=== PATIENT | male | born 1940 | race Asian ===

== ENCOUNTER 2023-07-17 14:40 | Inpatient (IN) | payer OTHER, SELFPAY ==
[2023-07-17] VITALS (13 sets, daily range): BP systolic 92–115; BP diastolic 54–90; BMI 27.5
--- NOTE | 2023-07-17 12:45 | ED.GENMED ---
History of Present Illness
General
Chief Complaint: Dizziness
Source: patient and family
Exam Limitations: none
Time Seen by Provider: 07/17/23 12:26
Nursing documentation reviewed up to this point in time: agreed with
Travel History
Have you had any contact with someone who has COVID-19?: No
Do you have any symptoms of coronavirus? Fever > 100 degrees, chills, cough, shortness of breath, sore throat, loss of taste or smell, muscle aches, or headache?: No
History of Present Illness
History of Present Illness:
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
Nondrinker non-smoker, hypercholesterolemia does have hypertension
Past History
Past History
ED Past Medical History: HTN and Hypercholesterolemia
Social History
Tobacco: Non-smoker
Alcohol: None
Drug: None
Personal:
Living: with family
Employment: Retired
Review of Systems
Review of Systems
Constitutional: Reports fever and fatigue
Respiratory: Reports cough and trouble breathing
Cardiac: Reports no symptoms
ABD/GI: Reports no symptoms
: Reports dysuria, frequency and difficulty voiding
Skin: Reports no symptoms
Neurological: Reports weakness
Hematologic/Lymphatic: Reports no symptoms
Psychiatric: Reports no symptoms
Phy Exam
Physical Exam
Physical Exam:
Physical Exam
General: 83 male feels warm low blood pressure
Neck: Dry lips
Heart: Irregular
Lungs: Rhonchi left greater than
Abdomen: Soft not
Neuro: alert and oriented. no focal neurological deficits
Skin: no rash
Psychiatric:cooperative
Extremities: no edema.
Course
Orders/Labs/Results
Orders:
Orders
07/17/23 11:24
EKG [Electrocardiogram (*1)] Urgent
Reason for Study: Vertigo / Dizzy
EKG- Treatment ONCE
07/17/23 12:38
Cardiac Monitoring- Treatment ONCE
IV Insert/Care/Rem.- Treatment PRN
Urinalysis Reflex To Culture Urgent
Date Specimen was Collected: 07/17/23
Time Specimen was Collected: 12:52
07/17/23 12:39
Rectal Temp- Treatment ONCE
CR Chest - 2 Views Urgent
Comment:
Reason For Exam: weakness
07/17/23 12:40
Bladder Scan- Treatment ONCE
0.9% Sodium Chloride 1000 ml [Nss] 1,000 ml IV BOLUS
07/17/23 12:55
Complete Blood Count/With Diff Urgent
Comprehensive Metabolic Panel Urgent
Lactic Acid Q4H
Comment: CANCEL 2nd LACTIC ACID IF 1st LACTIC ACID IS LESS THAN 2
Troponin I Urgent
Blood Culture Q30M
NIKKO Source: Blood/Venous
Specimen Description:
Influenza A+B Rapid Molecular Urgent
NIKKO Source: Nasal Swab
Specimen Description:
07/17/23 12:59
Blood Culture Q30M
NIKKO Source: Blood/Venous
Specimen Description:
07/17/23 13:09
Acetaminophen [Tylenol] 650 mg PO NOW STA
07/17/23 14:04
CT Abd/pel Without Iv Or Oral Urgent
Comment:
Reason For Exam: pain ARF fever
07/17/23 14:05
CefTRIAXone [Rocephin] 1,000 mg IV NOW STA
07/17/23 14:09
Straight cath- Treatment ONCE
Ipratropium/Albuterol Sulfate [Duoneb] 3 ml INH R NOW STA
07/17/23 16:45
Lactic Acid Q4H
Comment: CANCEL 2nd LACTIC ACID IF 1st LACTIC ACID IS LESS THAN 2
Abnormal Lab Results
07/17/23
12:55
RBC 3.70 L 10^6/uL
(4.70-6.10)
Hgb 12.0 L g/dL
(13.0-18.0)
Hct 32.0 L %
(39.0-52.0)
MCH 32.4 H pg
(27.0-31.0)
MCHC 37.5 H g/dL
(33.0-37.0)
Absolute Lymphs (auto) 0.8 L 10^3/uL
(1.2-3.4)
Neutrophils % 80.0 H %
(42.2-75.2)
Lymphocytes % 11.4 L %
(20.5-51.1)
Sodium 126 L mmol/L
(135-145)
Carbon Dioxide 19 L mmol/L
(22-30)
BUN 49 H mg/dl
(9-20)
Creatinine 1.4 H mg/dL
(0.7-1.3)
Glucose 136 H mg/dl
(70-99)
Alkaline Phosphatase 37 L U/L
(38-126)
07/17/23 12:55
07/17/23 12:55
Vital Signs
Initial and Last Documented VS:
Initial Vital Signs
Temp Pulse Resp BP Pulse Ox
97.7 F 64 18 92/54 96
07/17/23 11:21 07/17/23 11:21 07/17/23 11:21 07/17/23 11:21 07/17/23 11:21
Last Documented Vital Signs
Temp Pulse Resp BP Pulse Ox
101.7 F H 65 17 105/90 96
07/17/23 13:06 07/17/23 14:00 07/17/23 14:00 07/17/23 14:00 07/17/23 14:00
MDM/Problems Addressed
Differential Diagnosis Includes:
Pneumonia sepsis UTI dehydration influenza A-fib electrolyte abnormality
MDM/Problems Addressed:
Cough fatigue and low blood pressure
Chronic conditions affecting care: HTN
Acute Exacerbation and/or Progression of Chronic Illness: HTN
*Radiology
Radiology exam reviewed: radiology read reviewed
*Pulse Oximetry
Patient hypoxic: no
*EKG
Interpreted by ED Provider?: Yes
Interpretation: abnormal
Comparison EKG: no comparison EKG present
Heart Rate: 78
Rate: normal
Rhythm: a-fib
Ischemia: non-specific ST changes
*Mule Driver Interpretation
Rate: normal
Interpretation: normal
Heart Rate: 78
Rhythm: sinus
*Critical Care Note
Total Time (30-74mins, 75-104mins- exclusive of procedures): 30
Update Note
Update Note:
Update chest x-ray noted for report pending labs are noted looks like acute kidney injury hyponatremia will check urinalysis, CT rule out obstruction will require admission antibiotics have been ordered cultures have been ordered
ED Attending Note
-
Portions of this chart may have been created with voice recognition software.� Occasional wrong word or��sound alike� substitutions may have occurred due to the inherent limitations of voice recognition software.
Discharge Plan
Departure
Patient Disposition: Admit
Date of Disposition: 07/17/23
Time of Disposition: 14:10
Admit to: Telemetry
Presentation/result/management discussed w/ accepting MD/DO: Hospitalist
Patient with high blood pressure during this ER visit?: No
Condition: Fair
Covid-19: Not Applicable
Discharge Problem:
Pneumonia, Atrial fibrillation, Acute hyponatremia, Acute kidney injury
Prescriptions:
No Action
No Current Medications
Referrals:
Leroy Garcia MD [Family Provider] -
Interventions
Interventions:
*Risk Screen - Suicide Last Done: 07/17/23 11:21
*General Assessment Last Done: 07/17/23 11:21
*Neglect/Abuse Screening Last Done: 07/17/23 11:45
*ED COVID-19 Vaccine History Last Done: 07/17/23 11:21
ED- Neurological Assessment Last Done: 07/17/23 11:45
ED- Cardiac Assessment Last Done: 07/17/23 11:45
ED Swallowing Screen Last Done: 07/17/23 11:52
Discharge Date and Time
Print Language: ICELANDIC
[2023-07-17] MEDS: NSS 1000 IV ×2 (12:56→18:15)
[2023-07-17 13:13] LABS: % Basophils 0.3 % (0-2); % Eosinophils 0.1 % (0-6); % Immature Granulocytes 0.4 % (0-0.5); % Lymphocytes 11.4 % (20.5-51.1); % Monocytes 7.8 % (1.7-9.3); Absolute Lymphocytes 0.8 10^3/uL (1.2-3.4); Absolute Monocytes 0.6 10^3/uL (0.1-0.6); Absolute Neutrophils 5.8 10^3/uL (1.4-6.5); Mean Corp Hgb Conc. 37.5 g/dL (33.0-37.0); Mean Corpuscular Hgb 32.4 pg (27.0-31.0); Mean Corpuscular Volume 86.5 fL (80.0-94.0); Mean Platelet Volume 10.1 fL (7.4-10.4); Nucleated Red Blood Cells % 0 % (-); Platelet Count 192 10^3/uL (130-400); Red Cell Dist. Width 12.4 % (11.5-14.5); White Blood Cell Count 7.3 10^3/uL (4.8-10.8)
[2023-07-17] MEDS: TYLENOL 650 MG PO (13:13)
[2023-07-17 13:27] LABS: Lactic Acid 1.1 mmol/L (0.7-2.0)
[2023-07-17 13:31] LABS: ALT (SGPT) 25 U/L (0-50); AST (SGOT) 31 U/L (17-59); Albumin 3.5 g/dl (3.5-5.0); Alkaline Phosphatase 37 U/L (38-126); Blood Urea Nitrogen 49 mg/dl (9-20); Calcium 8.5 mg/dl (8.4-10.2); Carbon Dioxide 19 mmol/L (22-30); Chloride 99 mmol/L (98-107); Glucose 136 mg/dl (70-99); Potassium 4.3 mmol/L (3.5-5.1); Sodium 126 mmol/L (135-145); Total Protein 6.7 g/dl (6.3-8.2); eGFR 50.18
[2023-07-17 13:32] LABS: Troponin I 0.014 ng/ml
--- NOTE | 2023-07-17 14:13 | HPS.HSE ---
Family Physician
-
Family Physician: Leroy Garcia
Chief Complaint
-
Shortness of breath and fever for a few days during
History of Present Illness
83 years old male came from home accompanied by his and daughter. History taken from patient, family and ER doctor. Patient has limited Arabic. He started to have shortness of breath and weakness for 2 to 3 weeks. Then he started to have
fever with bodyaches in the last 5 days. He was using Advil at home. In the emergency room, he was noted to have fever. He did not have hypoxia. He was noted to have low blood pressure and tachycardia, acute kidney injury and hyponatremia at
126. He was given IV fluid. He was noticed to have atrial fibrillation of unknown duration. No history of sick contact. No history of chest pain or sore throat. Mild dry cough.
Medical History
Past Medical History
Past Medical History: Reports Other (Prostate disease, hypertension)
Past Surgical History: Reports Other (No major recent surgery)
Social History
Tobacco: Former Smoker
Alcohol: None
Drug: None
Personal:
Living: With Family
Employment: Retired
Family History
Family History: Other (His brother of tuberculosis)
Allergies / Home Medications
Allergies reflects when Allergies were last updated in [facility].
Home Medications with original date entered in [facility]
Allergy/Medication List:
Allergies
Allergy/AdvReac Type Severity Reaction Status Date / Time
sean poison Allergy Rash Uncoded 07/17/23 11:24
Home Medications
fenofibrate micronized 200 mg capsule 200 mg PO HS 07/17/23
icosapent ethyl 1 gram capsule (Vascepa) 2 g PO HS 07/17/23
[id number]-ntxuxakj-ukouoxn 36,000-114,000-180,000 unit capsule,delay rel (Creon) 1 cap PO MEALS PRN digestive enzymes 07/17/23
valsartan 160 mg-hydrochlorothiazide 12.5 mg tablet 1 tab PO HS 07/17/23
Review of Systems
-
History Source: Patient
A 12 point ROS was completed and negative except as noted: Yes
Constitutional: Reports Fever, Fatigue and Chills
EENT: Denies Sore Throat
Respiratory: Reports Cough and Trouble Breathing
Cardiac: Denies Chest Pain, Diaphoresis or Palpitations
Abdomen/GI: Denies Abdominal Pain
: Reports Difficulty Voiding
Musculoskeletal: Reports Muscle Pain; Denies Joint Pain or Joint Swelling
Skin: Denies Itching or Rash
Neurological: Reports Weakness; Denies Headache or Numbness
Endocrine: Denies Temp Intolerance
Hematologic/Lymphatic: Denies Bruising
Psych: Denies Panic Disorder
Physical Exam
Vital Signs
Vital Signs
Temp Pulse Resp BP Pulse Ox
101.7 F H 65 17 105/90 96
07/17/23 13:06 07/17/23 14:00 07/17/23 14:00 07/17/23 14:00 07/17/23 14:00
Physical Exam
General: Comfortable; No Respiratory Distress
HEENT: Moist mucous membranes and Atraumatic
Respiratory: Rales (left lower sided ); No Wheezes
Cardiac: S1/S2 and Irregular Rhythm; No Tachycardia
GI: Soft and Non Tender
Rectal: No Maroon Stools
Genito-urinary: No costovertebral tender
Musculoskeletal: No Clubbing, No Cyanosis and No Edema
Skin: Warm and Dry; No Jaundice
Neuro: AO x 3 and Other (Followed commands)
Psych: Calm; No Agitated
Laboratory Results
-
07/17/23 12:55
07/17/23 12:55
Laboratory Results
Lactic Acid Cancelled 07/17/23 16:45
Total Bilirubin 1.0 mg/dl (0.2-1.3) 07/17/23 12:55
AST 31 U/L (17-59) 07/17/23 12:55
ALT 25 U/L (0-50) 07/17/23 12:55
Alkaline Phosphatase 37 U/L (38-126) L 07/17/23 12:55
Troponin I 0.014 ng/ml 07/17/23 12:55
Impression/Plan
-
83 years old male who presented with fever, chills, body aches and shortness of breath
# Community-acquired pneumonia, left-sided with possible parapneumonic effusion
Admit the patient to the hospital/ IMU
He met criteria of mild sepsis of present on admission with fever, hypotension, pneumonia, acute kidney injury
Start the patient on Rocephin and doxycycline.
Urine for Legionella
Blood culture
Patient has dry cough, no productive sputum
CT of the chest without contrast due to renal insufficiency
No evidence of hypoxia at this point
Monitor response closely
# Newly diagnosed atrial fibrillation. Rate is controlled. Unknown duration
We will start the patient on anticoagulation
[id number] with age and HTN = 3
No history of chest pain. Negative troponin
Order echo
Negative COVID
No history of heart disease
Appreciate cardiology input
# Hyponatremia
Likely secondary to dehydration with use of nonsteroidal anti-inflammatory drugs
Give IV fluid and recheck.
He takes hydrochlorothiazide for high blood pressure.
No confusion
# Acute kidney injury. Mild metabolic acidosis
No history of kidney disease per family
Hold blood pressure medication including losartan and hydrochlorothiazide
Scan of the abdomen and pelvis to rule out hydronephrosis with history of difficult urination in last 1 to 2 days
Order urinalysis
No hematuria or flank pain
# Primary hypertension
Hold blood pressure medication while borderline hypotensive
# DVT prophylaxis
Total time spent to see the patient, examine the patient, review data and lab results, discuss treatment plan with patient, nursing staff, ER doctor around 75 minutes
[2023-07-17] MEDS: DUONEB 3 ML INH (14:16)
[2023-07-17] MEDS: ROCEPHIN 1000 MG IV (14:16)
[2023-07-17 15:12] LABS: COVID-19 Antigen Negative (Negative)
[2023-07-17 15:39] LABS: Urine Albumin Negative (Neg - Trace); Urine Bilirubin 1+ (Negative); Urine Character Clear (Clear); Urine Color Amber; Urine Glucose Negative (Negative); Urine Ketone Negative (Negative); Urine Leukocyte Negative (Negative); Urine Nitrite Negative (Negative); Urine Occult Blood 1+ (Negative); Urine Urobilinogen 2+ (Neg - 1+)
[2023-07-17 16:08] LABS: Urine Mucus Many
[2023-07-17 16:09] LABS: Urine Granular Cast 0-2 /LPF (0); Urine Red Blood Cell 0-2 /HPF (0-2); Urine White Cell 0-2 /HPF (0-5)
[2023-07-17] MEDS: ZITHROMAX INFUSION 250 IV (17:01)
[2023-07-17] MEDS: HEPARIN 25000 UNITS/250 ML IV (17:05)
[2023-07-17 17:21] LABS: APTT 42.1 Sec (23.4-35.0)
[2023-07-17 18:48] LABS: Hematocrit 29.5 % (39.0-52.0); Hemoglobin 10.8 g/dL (13.0-18.0); Red Blood Cell Count 3.29 10^6/uL (4.70-6.10); White Blood Cell Count 6.4 10^3/uL (4.8-10.8)
[2023-07-17 18:49] LABS: Mean Corp Hgb Conc. 36.6 g/dL (33.0-37.0); Mean Corpuscular Hgb 32.8 pg (27.0-31.0); Mean Corpuscular Volume 89.7 fL (80.0-94.0); Red Cell Dist. Width 12.9 % (11.5-14.5)
[2023-07-17 18:50] LABS: Mean Platelet Volume 11.2 fL (7.4-10.4); Platelet Count 189 10^3/uL (130-400)
--- NOTE | 2023-07-17 20:54 | PTCARENOTE ---
Received pt from ED via stretcher. Pt able to move into bed himself. VSS at this time, on RA 96%, HR 64 in AFib on monitor, BP 101/63. and son at bedside. Pt is primarily Pashto speaking but understands some Frisian. NSS running at 75
ml/hr with Heparin gtt running at 10 ml/hr. Pt oriented to room. Bed alarm active. Resting in bed with call cuellar in reach.
[2023-07-17 23:33] LABS: APTT 77.2 Sec (23.4-35.0)
[2023-07-18] VITALS (12 sets, daily range): BP systolic 101–131; BP diastolic 62–107
[2023-07-18] MEDS: NSS 1000 IV ×2 (05:10→17:42)
[2023-07-18 05:40] LABS: APTT 70.4 Sec (23.4-35.0)
[2023-07-18 05:53] LABS: Blood Urea Nitrogen 39 mg/dl (9-20); Calcium 8.1 mg/dl (8.4-10.2); Carbon Dioxide 22 mmol/L (22-30); Chloride 105 mmol/L (98-107); Estimated Creatinine Clearance 64 ml/min; Glucose 100 mg/dl (70-99); Potassium 4.4 mmol/L (3.5-5.1); Sodium 131 mmol/L (135-145); eGFR > 60.00
--- NOTE | 2023-07-18 09:13 | CM ---
Addendum entered by Erica Easton 07/18/23 13:49:
Patient and spouse do not speak Northern Irish; on request, contacted patient's daughter, Mariela Perez, to complete initial assessment
Pharmacy verified: [facility], [address] [place] [address]
Daughter reported that patient and his live in a one floor condo; building has elevator access; bathroom has walk-in shower with grab bar and chair; daughter lives nearby and visits regularly
PLOF: daughter reported that prior to current illness, her father was independent; ambulated with a cane yesterday; and was independent with ADLs; is available to assist if needed; Drives
DME: Glucometer, BP cuff, Cane
SNF/Rehab/Home Health utilization history: none
Transportation: drives and will provide ride home
Plan: discharge to home when medically stable; will monitor for DC needs
Original Note:
Case Management Consult completed
Per patient's pharmacy, no copay is required for Eliquis (BRAND) 5 mg, BID
Attending notified via [facility] [place] Text
--- NOTE | 2023-07-18 12:09 | PTCARENOTE ---
Hparin gtt will be dc and pt to Eliquis no PTT needed at this time
--- NOTE | 2023-07-18 14:29 | W.PN.HOSP.TC ---
Today's Communication/Plan
-
switch to eliquis
monitor na with resuscitation
abx
echo
Assessment / Plan
Assessment / Plan
Physical Exam
General: Comfortable; No Respiratory Distress
HEENT: Moist mucous membranes and Atraumatic
Respiratory: CTAB; No Wheezes
Cardiac: S1/S2 and Irregular Rhythm; No Tachycardia
GI: Soft and Non Tender
Rectal: No Maroon Stools
Genito-urinary: No costovertebral tender
Musculoskeletal: No Clubbing, No Cyanosis and No Edema
Skin: Warm and Dry; No Jaundice
Neuro: AO x 3 and Other (Followed commands)
Psych: Calm; No Agitated
# Community-acquired pneumonia, minimal parapneumonic effusion
#Sepsis
Cont Rocephin and doxycycline.
Urine for Legionella
F/u Blood cultures
# Newly diagnosed atrial fibrillation. Rate is controlled. Unknown duration
switch to Eliquis
Rate controlled
F/u Cards outpatient
F/u ECHO
#Anemia
-?Acute Blood Loss anemia v dilutional
-no evidence of bleeding
-monitor Hgb with anticoag
# Hyponatremia
Likely secondary to dehydration and HCTZ
Cotn IVF
Stop HCTZ in future
# Acute kidney injury. Mild metabolic acidosis
No history of kidney disease per family
Hold blood pressure medication including losartan and hydrochlorothiazide
no urinary symptoms, no pathology in imaging
Resolved
# Primary hypertension
Hold blood pressure medication while borderline hypotensive
# DVT prophylaxis - Eliquis
Anticipated Discharge: Within 24 hours
Subjective/Interval History
-
Date of Service: July 18, 2023
feels better
Objective Data
-
Labs:
Laboratory Results
07/18/23 07/18/23
05:18 12:00
APTT 70.4 H Cancelled
Sodium 131 L
Potassium 4.4
Chloride 105
Carbon Dioxide 22
BUN 39 H
Creatinine 0.9
Glucose 100 H
Calcium 8.1 L
Vital Signs:
Vital Signs
Temp Pulse Resp BP Pulse Ox
97.9 F 62 16 103/86 95
07/18/23 11:15 07/18/23 12:00 07/18/23 12:00 07/18/23 12:00 07/18/23 12:00
I&O
07/17/23 07/18/23 07/19/23
06:59 06:59 06:59
Intake Total 1380 / 1380
Output Total 425 / 425
Balance 955 / 955
Review of Systems
-
History Source: Patient
All other systems: Not reviewed unless documented
Data Reviewed
-
CT Scan: Image personally visualized and interpreted and Report Reviewed by me
Labs: Labs Reviewed by me
[2023-07-18] MEDS: STERILE WATER FOR INJECTION 20 ML IV (14:57)
[2023-07-18] MEDS: ROCEPHIN 2000 MG IV (14:57)
[2023-07-18] MEDS: HEPARIN 25000 UNITS/250 ML IV (15:25)
[2023-07-18] MEDS: ZITHROMAX INFUSION 250 IV ×2 (15:58→16:01)
[2023-07-18] MEDS: ELIQUIS 5 MG PO (19:36)
[2023-07-19] VITALS (7 sets, daily range): BP systolic 103–143; BP diastolic 72–85
--- NOTE | 2023-07-19 03:21 | PTCARENOTE ---
at beginning of shift, heparin drip discontinued per order. PO eliquis given. at bedside.
[2023-07-19 04:34] LABS: Hematocrit 28.3 % (39.0-52.0); Hemoglobin 10.6 g/dL (13.0-18.0); Mean Corp Hgb Conc. 37.5 g/dL (33.0-37.0); Mean Corpuscular Hgb 32.8 pg (27.0-31.0); Mean Corpuscular Volume 87.6 fL (80.0-94.0); Mean Platelet Volume 9.8 fL (7.4-10.4); Platelet Count 202 10^3/uL (130-400); Red Blood Cell Count 3.23 10^6/uL (4.70-6.10); Red Cell Dist. Width 12.5 % (11.5-14.5)
[2023-07-19 05:11] LABS: ALT (SGPT) 30 U/L (0-50); AST (SGOT) 36 U/L (17-59); Albumin 2.8 g/dl (3.5-5.0); Alkaline Phosphatase 31 U/L (38-126); Blood Urea Nitrogen 27 mg/dl (9-20); Calcium 7.9 mg/dl (8.4-10.2); Carbon Dioxide 18 mmol/L (22-30); Chloride 110 mmol/L (98-107); Estimated Creatinine Clearance 82 ml/min; Glucose 97 mg/dl (70-99); Magnesium 1.9 mg/dl (1.6-2.3); Potassium 4.3 mmol/L (3.5-5.1); Sodium 131 mmol/L (135-145); Total Bilirubin 0.5 mg/dl (0.2-1.3); Total Protein 5.7 g/dl (6.3-8.2); eGFR > 60.00
[2023-07-19] MEDS: NSS 1000 IV (05:52)
[2023-07-19] MEDS: ELIQUIS 5 MG PO (07:45)
--- NOTE | 2023-07-19 12:28 | W.PN.HOSP.TC ---
Addendum entered and electronically signed by Cooper Avila MD 07/21/23 16:06:
[id number]
Original Note:
Today's Communication/Plan
-
switch to cefdinir to complete 7 day course and azithromycin for 5 day course
Eliquis, rate controlled
f/u PCP, Cardiology outpatient
Assessment / Plan
Assessment / Plan
Physical Exam
General: Comfortable; No Respiratory Distress
HEENT: Moist mucous membranes and Atraumatic
Respiratory: CTAB; No Wheezes
Cardiac: S1/S2 and Irregular Rhythm; No Tachycardia
GI: Soft and Non Tender
Rectal: No Maroon Stools
Genito-urinary: No costovertebral tender
Musculoskeletal: No Clubbing, No Cyanosis and No Edema
Skin: Warm and Dry; No Jaundice
Neuro: AO x 3 and Other (Followed commands)
Psych: Calm; No Agitated
# Community-acquired pneumonia, minimal parapneumonic effusion
#Sepsis
-improved
Cont Rocephin and azithro- switch to cefdinir to complete 7 day course and azithromycin for 5 day course
Urine for Legionella - negative
F/u Blood cultures - ngtd
# Newly diagnosed atrial fibrillation. Rate is controlled. Unknown duration
switch to Eliquis
Rate controlled
F/u Cards outpatient
F/u ECHO - mild HFpEF, otherwise EF 55-60%
#Anemia
-stable
-no evidence of bleeding
-f/u cbc outpatient
# Hyponatremia
Likely secondary to dehydration and HCTZ
Cont IVF
Stop HCTZ in future
# Acute kidney injury. Mild metabolic acidosis
No history of kidney disease per family
Hold blood pressure medication including losartan and hydrochlorothiazide
no urinary symptoms, no pathology in imaging
Resolved
-acidosis most likely worsened with NS - stopped
# Primary hypertension
stop hctz indefinitely
cont valsartan
#Small hypodensity in the liver most consistent with a cyst.
-f/u outpatient
# DVT prophylaxis - Eliquis
More than 30 minutes spent in discharge including
Final examination of the patient
Summarizing hospital stay
Instructions for continuing care to all relevant caregivers
Preparation of discharge records, prescriptions, and referral forms
Total time spent (35 in minutes):
Anticipated Discharge: Today
Subjective/Interval History
-
Date of Service: July 19, 2023
feels well, no acute events
Objective Data
-
Labs:
Laboratory Results
07/19/23
04:11
WBC 4.0 L
Hgb 10.6 L
Hct 28.3 L
Plt Count 202
Sodium 131 L
Potassium 4.3
Chloride 110 H
Carbon Dioxide 18 L
BUN 27 H
Creatinine 0.7
Glucose 97
Calcium 7.9 L
Total Bilirubin 0.5
AST 36
ALT 30
Alkaline Phosphatase 31 L
Vital Signs:
Vital Signs
Temp Pulse Resp BP Pulse Ox
97.3 F 73 15 143/80 95
07/19/23 07:15 07/19/23 08:19 07/19/23 08:19 07/19/23 08:19 07/19/23 08:44
I&O
07/18/23 07/19/23 07/20/23
06:59 06:59 06:59
Intake Total 1380 / 1380 1075 / 1075
Output Total 425 / 425
Balance 955 / 955 1075 / 1075
Review of Systems
-
History Source: Patient
All other systems: Not reviewed unless documented
Data Reviewed
-
CT Scan: Image personally visualized and interpreted and Report Reviewed by me
Labs: Labs Reviewed by me
--- NOTE | 2023-07-19 12:34 | W.DS.TRANS ---
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
-
Discharge Instructions:
Discharge Diagnosis/Procedures Community-acquired pneumonia
Newly diagnosed atrial fibrillation
Diet Low Cholesterol,Low Fat
Activity As tolerated
Blood Work bmp in 3-5 days with pcp (Na remained at 131
here)
Instructions:
Stand-Alone Forms:
Changes to Home Medications: Yes
Discharge Medications:
DC Medications w/original date entered in [facility]
fenofibrate micronized 200 mg capsule 200 mg PO HS TRIGLYCERIDES 07/17/23
icosapent ethyl 1 gram capsule (Vascepa) 2 g PO HS High Cholesterol 07/17/23
xcvqmx-bgejcrqk-oxoolmn 36,000-114,000-180,000 unit capsule,delay rel (Creon) 1 cap PO MEALS PRN digestive enzymes 07/17/23
apixaban 5 mg tablet (Eliquis) 5 mg PO BID 30 days #60 tabs 07/19/23
azithromycin 500 mg tablet 500 mg PO DAILY 3 days #3 tabs 07/19/23
cefdinir 300 mg capsule 300 mg PO BID 6 days #12 caps 07/19/23
valsartan 160 mg tablet 160 mg PO QHS 30 days #30 tabs 07/19/23
Home Medication Changes
apixaban 5 mg tablet (Eliquis) 5 mg PO BID 30 days #60 tabs 07/19/23
azithromycin 500 mg tablet 500 mg PO DAILY 3 days #3 tabs 07/19/23
cefdinir 300 mg capsule 300 mg PO BID 6 days #12 caps 07/19/23
valsartan 160 mg tablet 160 mg PO QHS 30 days #30 tabs 07/19/23
Pending Results: No
--- NOTE | 2023-07-19 12:35 | CM ---
Portuguese speaking patient with Dx CAP, sepsis, new A fib. Room air.
Spoke with patient's daughter Mariela by phone; the daughter agrees with discharge today. IMM completed and copy sent to her email at [email or web address]. Her mother is here with the patient and will provide transport home today.
No CM d/c needs identified.
Plan home today.
[2023-07-19] MEDS: ZITHROMAX INFUSION IV (15:15)
[2023-07-19] MEDS: ROCEPHIN IV (15:17)
== END 2023-07-19 15:45 | disposition home or self-care (01) | DRG 871 ==
LOC: IMU 14:40
PROVIDERS: ADMITTING PHYSICIAN Internal Medicine; ATTENDING PHYSICIAN Internal Medicine; EMERGENCY PHYSICIAN Emergency Medicine; FAMILY PHYSICIAN Internal Medicine
DX: A41.89 Other specified sepsis (principal); J18.9 Pneumonia, unspecified organism; E87.1 Hypo-osmolality and hyponatremia; N17.9 Acute kidney failure, unspecified; E87.20 Acidosis, unspecified; D62 Acute posthemorrhagic anemia; I50.30 Unspecified diastolic (congestive) heart failure; I48.91 Unspecified atrial fibrillation; E86.0 Dehydration; K76.89 Other specified diseases of liver; I10 Essential (primary) hypertension
CPT/HCPCS: 51798; 71046; 71250; 74176; 80048; 80053; 81003; 81015; 83605; 83735; 84484; 85025; 85027; 85730; 87040; 87449; 87502; 87811; 93005; 93306; 96360; 99291

== ENCOUNTER → 2023-09-26 07:26 | Outpatient (REF) | payer OTHER, SELFPAY | LOC: DHCBC/DCA 07:26 | PROVIDERS: ATTENDING PHYSICIAN Internal Medicine Cardiovascular Disease; FAMILY PHYSICIAN Internal Medicine | DX: I48.91 Unspecified atrial fibrillation (principal); E78.5 Hyperlipidemia, unspecified; R06.09 Other forms of dyspnea; R94.31 Abnormal electrocardiogram [ECG] [EKG] | CPT/HCPCS: 78452; 93017; A9500; J2785 ==